=== PATIENT | male | born 1970 ===

== ENCOUNTER → 2025-03-21 | Outpatient (CLI) | payer OTHER ==
[~2025-03-21] MED LIST: ASPI-1450 PO; BUSP15 PO; CALC625T66 PO; CARV3 PO; DOCU-385 PO; HYDR-4808 PO; LACT20PA6 PO; LISI-894 PO; METF-1211 PO; NITR0.4T52 SL; QUET200T PO; ROSU20TA98 PO
== END | disposition home or self-care (01) ==
LOC: TELEHEALTH 13:17
PROVIDERS: ATTEND Internal Medicine
DX: I25.10 Atherosclerotic heart disease of native coronary artery without angina pectoris (principal); D56.0 Alpha thalassemia; E78.5 Hyperlipidemia, unspecified; F20.9 Schizophrenia, unspecified; F32.A Depression, unspecified; I10 Essential (primary) hypertension; I25.2 Old myocardial infarction; R73.03 Prediabetes; Z79.82 Long term (current) use of aspirin; Z79.899 Other long term (current) drug therapy; Z83.3 Family history of diabetes mellitus; Z87.891 Personal history of nicotine dependence; Z95.5 Presence of coronary angioplasty implant and graft
CPT/HCPCS: Q3014